=== PATIENT | male | born 1995 | race Caucasian/White ===

== ENCOUNTER 2016-10-05 22:00 | Inpatient (IN) | payer OTHER ==
[~2016-10-05] VITALS: Ht 172.7 cm; Wt 92.5 kg
--- NOTE | ~2016-10-05 | PN ---
Unit #: [id number] #: [id number] Patient: DEVIN BROWN [id number] [facility] [address] [place] [address] [id number] MR#: [id number] NAME: DEVIN BROWN ROOM: P174 Age: 21 Sex: M Admission Date: 10/06/2016 : 1995 Attending Physician: Jax Velarde M.D. Admitting Physician: Jax Velarde M.D. Primary Care Physician: Primary Care Physician Ashley SERRATO PROGRESS NOTES DATE 10/08/2016 DISCUSSION The patient reports that he has recently learned that a dear friend has from a heroin overdose. The patient is reporting increased depressed mood over this and wishes to remain in the hospital for one further day to process this information. I will allow him to do so. Dictated by... Jax Velarde M.D. CB/cristal TD: 10/09/2016 00:22 JOB #: [id number] ROJELIO PROGRESS NOTES Page 1 of 1 X Jax Velarde MD PROGRESS NOTE
--- NOTE | ~2016-10-05 | HP ---
Unit #: [id number] #: [id number] Patient: EVARISTO BROWN [id number] [place] [address] [id number] I MR#: [id number] NAME: EVARISTO BROWN ROOM: P174 Age: 21 Sex: M Admission Date: 10/06/2016 : 1995 Attending Physician: Jax Velarde M.D. Admitting Physician: Jax Velarde M.D. Primary Care Physician: Primary Care Physician No HISTORY AND PHYSICAL HISTORY OF PRESENT ILLNESS Evaristo is a 21 year old admitted to [facility] because of his polysubstance abuse which includes IV methamphetamine and heroin. PAST MEDICAL HISTORY 1. Long history of illicit substance abuse to include IV meth and heroin. 2. Hepatitis C. 3. Asthma. PAST SURGICAL HISTORY 1. Appendectomy. 2. Right leg. ALLERGIES Penicillin. SOCIAL HISTORY He smokes 2 packs per day. Denies alcohol. Admits to a long history of illicit substance abuse to include IV drugs. FAMILY HISTORY Medically noncontributory. REVIEW OF SYSTEMS CONSTITUTIONAL: No fever or chills. HEENT: Denies any sore throat, ear pain or runny nose. CARDIOVASCULAR: Denies chest pain, irregular heart rhythm or palpitations. CHEST: Denies shortness of breath or cough. No hemoptysis. GASTROINTESTINAL: Denies nausea, vomiting, diarrhea or chronic constipation. ENDOCRINE: Denies history of increased thirst or urination. No recent significant weight loss or gain. GENITOURINARY: Denies dysuria, frequency, or hematuria. SKIN: Denies any rashes. HEMATOLOGIC: Denies history of increased bleeding or bruising. MUSCULOSKELETAL: Denies any hot, swollen joints. No generalized muscle pain. NEUROLOGIC: Denies problems with vision or speech. No frequent, severe headaches. No numbness, tingling or weakness in any extremities. Denies loss of bladder or bowel control. CURRENT MEDICATIONS Unit #: [id number] #: [id number] Patient: EVARISTO BROWN 1. Nicotine patch 14 mg daily. 2. Milk of Magnesia p.r.n. 3. Maalox p.r.n. 4. Tylenol p.r.n. PHYSICAL EXAMINATION GENERAL: Alert, well-nourished, in no apparent distress. VITAL SIGNS: Blood pressure 130/54, heart rate 80, respirations 16, temperature 98.6. WEIGHT: 204. HEIGHT: 5 feet 8 inches. SKIN: Warm and dry without rash or lesion. HEENT: Normocephalic. TMs not viewed. Oral and nasal passages clear. Conjunctivae clear. PERRLA. EOMs intact. NECK: Supple without lymphadenopathy or thyromegaly. HEART: Regular rate and rhythm without murmur. LUNGS: Clear. ABDOMEN: Soft, nontender. : Not done. EXTREMITIES: No evidence of cyanosis, clubbing or edema. Moves all without focal deficit. NEUROLOGICAL: Grossly within normal limits. Cranial Nerves: II: Visual mckeon are intact. III, IV AND : Extraocular movements are intact. Pupils are equal, round and reactive to light. V: Facial sensation is grossly normal. VII: Facial movements and expression are normal. VIII: Auditory acuity grossly intact. IX, X: Uvula is midline. Phonation is normal. XI: Patient shrugs shoulders and turns head normally. XII: Tongue protrudes in the midline. Sensory and Motor Function: Sensory and motor sensation is grossly normal. Motor: moves all extremities well. Coordination: Gait is normal. Deep Tendon Reflexes: Intact. IMPRESSION Psychiatric admission. RECOMMENDATIONS PSYCHIATRIC: Per psychiatrist. MEDICAL: See no contraindication to participate in facility's activities. MEDICAL PROGNOSIS Good. MEDICAL CONDITION Stable. Dictated by... Loretta Colindres P.A.-C. for Dwayne Mo/audra TD: 10/06/2016 21:16 JOB #: [id number] Unit #: [id number] #: [id number] Patient: EVARISTO BROWN HISTORY AND PHYSICAL Page 1 of 1 X Loretta Colindres HISTORY AND PHYSICAL
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
--- NOTE | ~2016-10-05 | PN ---
Unit #: [id number] #: [id number] Patient: DEVIN BROWN [id number] [facility] [address] [place] [address] [id number] MR#: [id number] NAME: DEVIN BROWN ROOM: P174 Age: 21 Sex: M Admission Date: 10/06/2016 : 1995 Attending Physician: Jax Velarde M.D. Admitting Physician: Jax Velarde M.D. Primary Care Physician: Primary Care Physician Ashley SERRATO PROGRESS NOTES DATE 10/07/2016 DISCUSSION The patient seems brighter today and reports no suicidal or homicidal ideation. He exhibits no signs or symptoms of withdrawal, and should he sustain progress discharge should take place as early as tomorrow. Dictated by... Jax Velarde M.D. CB/francesca TD: 10/07/2016 12:42 JOB #: [id number] [facility] PROGRESS NOTES Page 1 of 1 X Jax Velarde MD PROGRESS NOTE
--- NOTE | ~2016-10-05 | DS ---
Unit #: [id number] #: [id number] Patient: DEVIN BROWN [id number] [place] [address] [id number] I MR#: [id number] NAME: DEVIN BROWN ROOM: P174 Age: 21 Sex: M Admission Date: 10/06/2016 : 1995 Discharge Date: 10/09/2016 Attending Physician: Jax Velarde M.D. Primary Care Physician: Primary Care Physician No DISCHARGE SUMMARY REASON FOR ADMISSION The patient is a 21-year-old single white male, admitted to the [facility] unit with recurrent abuse of methamphetamine and opioids. HOSPITAL COURSE The patient was admitted to the [facility] unit and placed on suicide precautions. He was placed on routine detoxification protocol for opioids. His stay in the hospital was a fairly uneventful one. It was notable for the fact that the patient attempted to extend his stay in the hospital by attempting to direct barriers to his discharge on Sunday of discharge. The patient claimed that he would "relapse if discharged" because a friend with him, he plans to say had also relapsed. It was explained to the patient this is not grounds for ongoing hospitalization. It is also worth noting that in spite of the patient's claims of his recent relapse, his drug screen was entirely negative leading this physician to believe that there may have been a degree of malingering in the patient's admission to the hospital. Whatever the case, discharge was ordered as planned on 10/09/2016. FINAL DIAGNOSES Methamphetamine use disorder by history; opioid use disorder by history; dysthymic disorder; rule out malingering; DISPOSITION ON DISCHARGE No psychotropic or other medications were ordered at the time of discharge. FOLLOWUP Followup will take place through the auspices of community mental health resources. PROGNOSIS The patient's prognosis is considered fair. Dictated by... Jax Velarde M.D. CB/gavino TD: 10/09/2016 15:03 JOB #: [id number] Unit #: [id number] #: [id number] Patient: DEVIN BROWN DISCHARGE SUMMARY Page 1 of 1 X Jax Velarde MD X DISCHARGE SUMMARY
[2016-10-06 09:39] LABS: BASOPHIL% 0.6 % (0-2.5); EOSINOPHIL# 0.2 X10e3 (0-0.7); EOSINOPHIL% 2.5 % (0.0-7.0); HEMATOCRIT 42.8 % (38.0-50.0); HEMOGLOBIN 14.5 gm/dL (13.0-16.0); LYMPHOCYTE# 2.7 X10e3 (1.0-3.5); LYMPHOCYTE% 39.7 % (17.0-45.0); MEAN CELL VOLUME 86.9 FL (83-96); MEAN CORPUSCULAR HEMOGLOBIN 29.5 PG (28-34); MEAN CORPUSCULAR HGB CONC 33.9 g/dL (30-36); MEAN PLATELET VOLUME 7.9 FL (6.5-11.5); MONOCYTE# 0.5 X10e3 (0-1.0); MONOCYTE% 7.7 % (3.0-12.0); NEUTROPHIL# 3.4 X10e3 (1.5-7.1); NEUTROPHIL% 49.5 % (40-75); PLATELET COUNT 256 X10e3 (140-420); RED BLOOD COUNT 4.93 X10e (3.90-5.60); RED CELL DISTRIBUTION WIDTH 12.3 % (11.0-15.5); WHITE BLOOD COUNT 6.9 X10e3 (4.0-10.5)
[2016-10-06 09:52] LABS: DIFF IND NO
[2016-10-06 09:59] LABS: ALBUMIN SERUM 3.6 g/dL (3.5-5.0); BILIRUBIN,TOTAL 0.3 mg/dL (0.2-2.0); BUN/CREATININE RATIO 16.66; CALCIUM SERUM 9.2 mg/dL (8.4-10.2); CREATININE SERUM 0.6 mg/dL (0.6-1.4); GLOM FILT RATE Estimated 143.8 mL/min (>60); POTASSIUM 4.2 mmol/L (3.5-5.1)
[2016-10-07 11:57] LABS: URINE APPEARANCE CLEAR; URINE BILIRUBIN NEG (NEG); URINE BLOOD NEG (NEG); URINE COLOR YELLOW; URINE GLUCOSE NEG (NEG); URINE KETONE NEG (NEG); URINE LEUKOCYTE ESTERASE NEG (NEG); URINE NITRATE NEG (NEG); URINE PH 7.5 (5-8); URINE PROTEIN NEG (NEG); URINE SPECIFIC GRAVITY 1.006 (1.003-1.035); URINE UROBILINOGEN 0.2 MG/DL (NEG)
== END 2016-10-09 15:32 | DRG 897 ==
LOC: P1E 10-06 02:10 → EDBD 10-06 02:10 → P1E 10-06 02:50
PROVIDERS: Specialist
PROC: HZ2ZZZZ Detoxification Services for Substance Abuse Treatment (ICD-10-PCS; principal; 2016-10-06)
DX: F15.10 Other stimulant abuse, uncomplicated (principal); F11.10 Opioid abuse, uncomplicated; R45.851 Suicidal ideations; F39 Unspecified mood [affective] disorder; Z88.0 Allergy status to penicillin; F17.200 Nicotine dependence, unspecified, uncomplicated; F34.1 Dysthymic disorder; Z76.5 Malingerer [conscious simulation]
CPT/HCPCS: 80053; 81003; 85025

== ENCOUNTER 2016-10-22 08:00 | Inpatient (IN) | payer OTHER ==
[~2016-10-22] VITALS: Ht 175.3 cm; Wt 86.2 kg
--- NOTE | ~2016-10-22 | HP ---
Unit #: [id number] #: [id number] Patient: DEVIN BROWN [id number] [facility] [address] [place] [address] [id number] I MR#: [id number] NAME: DEVIN BROWN ROOM: P182 Age: 21 Sex: M Admission Date: 10/22/2016 : 1995 Attending Physician: Jax Velarde M.D. Admitting Physician: Jax Velarde M.D. Primary Care Physician: Primary Care Physician No HISTORY AND PHYSICAL The patient is a 21-year-old male admitted to [facility] on 10/22/2016 for suicidal ideations and methamphetamine abuse. Patient had a recent admission on 10/06/2016 where a full history and physical was completed. That history and physical has been reviewed. No changes need to be made. Dictated by... Mo Gambino/cristal TD: 10/22/2016 23:58 JOB #: [id number] HISTORY AND PHYSICAL Page 1 of 1 X CHHAYA RUEDA APRN X HISTORY AND PHYSICAL
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
--- NOTE | ~2016-10-22 | DS ---
Unit #: [id number] #: [id number] Patient: DEVIN BROWN [id number] [facility] [address] [place] [address] [id number] I MR#: [id number] NAME: DEVIN BROWN ROOM: P182 Age: 21 Sex: M Admission Date: 10/22/2016 : 1995 Discharge Date: 10/25/2016 Attending Physician: Jax Velarde M.D. Primary Care Physician: Primary Care Physician No DISCHARGE SUMMARY REASON FOR ADMISSION The patient is a 21-year-old white male, admitted claiming to be abusing opioids and methamphetamine. HOSPITAL COURSE The patient was admitted to the [facility] unit and placed on suicide precautions. He was continued on previously prescribed medications. By 10/25/2016, he was accepted at "[facility]" and discharge was ordered. FINAL DIAGNOSES Opioid use disorder and methamphetamine use disorder. DISPOSITION ON DISCHARGE The patient is discharged to [facility] in [place]. PROGNOSIS His prognosis is considered guarded. Dictated by... Jax Velarde M.D. CB/gavino TD: 10/25/2016 15:39 JOB #: [id number] DISCHARGE SUMMARY Page 1 of 1 X Jax Velarde MD X DISCHARGE SUMMARY
--- NOTE | ~2016-10-22 | PA ---
Unit #: [id number] #: [id number] Patient: DEVIN BROWN [id number] [facility] [address] [place] [address] [id number] I MR#: [id number] NAME: DEVIN BROWN ROOM: P182 Age: 21 Sex: M Admission Date: 10/22/2016 : 1995 Date of Assessment: 10/23/2016 Attending Physician: Jax Velarde M.D. Admitting Physician: Jax Velarde M.D. Primary Care Physician: Primary Care Physician No PSYCHIATRIC ASSESSMENT IDENTIFYING INFORMATION The patient is a 21-year-old white male admitted after he had presented to [facility] claiming to have recently relapsed on heroin. INFORMANT(S) Patient. RELIABILITY Fair. CHIEF COMPLAINT I relapsed. HISTORY OF PRESENT ILLNESS The patient is a 21-year-old white male just discharged from this facility on 10/10/2016. Upon discharge, the patient reports that he went to the "trap house" where they "sell drugs and stuff" and relapsed almost immediately. The patient is reporting positive suicidal ideation with plan to overdose. He is presently homeless and claims that he has not been attending to activities of daily living. PAST PSYCHIATRIC HISTORY Reviewed, no changes. FAMILY HISTORY/SOCIAL HISTORY Reviewed, no changes. MEDICAL HISTORY Reviewed, no changes. MEDICATION HISTORY None. ALLERGIES Penicillin. MENTAL STATUS EXAM At this time, reveals the patient to be a somewhat disheveled white male appearing his stated age. Of note is the fact that the patient appears to be in no physical distress whatsoever. The patient is awake, alert, oriented in all spheres. His mood is mildly dysphoric and irritable. His affect is constricted. Speech is generally relevant and coherent. There are no gross deficits in memory or cognition noted. Intelligence is Unit #: [id number] #: [id number] Patient: DEVIN BROWN judged to be in the low average range based on fund of knowledge. The patient is cooperative throughout the interview. He is currently endorsing positive suicidal ideation. He denies homicidal ideation. He denies any psychotic symptoms. His judgement and insight appear to be at baseline. ASSETS AND LIABILITIES Patient's assets to be assessed. Liabilities, lack of investment in treatment. ADMITTING DIAGNOSES 1. Methamphetamine use disorder per patient history. 2. Opioid use disorder per patient history. 3. Dysthymic disorder. PSYCHIATRIC PLAN/TREATMENT GOALS The patient remains hospitalized for safety and stabilization. Suicide precautions remain in place. We will watch for any signs of withdrawal. However, the patient seems quite comfortable for someone who claims to be in opiate withdrawal leading this physician to believe that he may have fabricated his reported suicidal ideation and drug use in order to gain admission to the hospital. ESTIMATED LENGTH OF STAY Two to three days. Dictated by... Jax Velarde M.D. JUAN A/audra TD: 10/23/2016 14:00 JOB #: [id number] PSYCHIATRIC ASSESSMENT Page 1 of 1 X Jax Velarde MD X PSYCHIATRIC ASSESSMENT
== END 2016-10-25 11:05 | DRG 897 ==
LOC: P1E 14:09
DX: F11.23 Opioid dependence with withdrawal (principal); R45.851 Suicidal ideations; F34.1 Dysthymic disorder; Z88.0 Allergy status to penicillin